=== PATIENT | female | born 1990 ===

== ENCOUNTER 2019-05-12 22:03 | Emergency (ER) | payer SELFPAY ==
--- NOTE | 2019-05-12 22:25 | Emergency Department Report ---
Blank Doc - Documentation Documentation: 28-year-old female that presents with right shoulder pain. This initial assessment/diagnostic orders/clinical plan/treatment(s) is/are subject to change based on patient's health status, clinical progression and re- assessment by fellow clinical providers in the ED. Further treatment and workup at subsequent clinical providers discretion. Patient/guardians urged not to elope from the ED as their condition may be serious if not clinically assessed and managed. Initial orders include: 1- Patient sent to [facility] for further evaluation and treatment 2- xrays
--- NOTE | 2019-05-12 23:06 | XRay Report ---
Right shoulder, 3 views INDICATION: Nontraumatic shoulder pain FINDINGS: The joint space is maintained. There is no fracture or dislocation. No spurring or arthriti c change. No bone lesion or periostitis. No significant abnormality. IMPRESSION: Negative study Signer Name: Salvador Newsome MD Signed: 05/12/2019 11:02 PM Workstation Name: [id number]
[2019-05-12] MEDS ORDERED: KETOROLAC 30 MG/1 ML INJ IM ONE (23:19)
[2019-05-12] MEDS ORDERED: GABAPENTIN 300 MG CAP PO ONE (23:19)
[2019-05-12] MEDS ORDERED: predniSONE 20 MG TAB PO ONE (23:19)
--- NOTE | 2019-05-12 23:54 | Emergency Department Report ---
ED Extremity Problem HPI - General Chief complaint: Extremity Problem,Nontraumatic Stated complaint: RT SHOULDER BACK AND RT HAND Time Seen by Provider: 05/12/19 22:23 Source: patient Mode of arrival: Ambulatory Limitations: No Limitations - History of Present Illness Initial comments: Patient is a 28-year-old [place] female with no past medical history who presents to the ED with complaint of a persistent nontraumatic right lateral neck and shoulder pain that radiates distally to the right arm and hand neck for the last 6 months, and which has worsened in the last 1 week. 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 Patient states that the pain radiates to the distal fingers with tingling and numbness sensation. Patient also states that the pain radiates to have posterior right shoulder and anterior right chest wall. Patient denies fall, traumatic injury, dizziness, nausea, vomiting, chest pain, shortness of breath, back pain, change in vision, syncope or headache. MD Complaint: extremity pain (Right shoulder pain), joint paint (right shoulder pain), other (right lateral neck pain that radiates to right arm with tingling) -: Gradual, month(s) (6) Location: right, upper extremity (shoulder), other (right lateral neck pain) History of Same: Yes -: Yes arthralgia, No fever, No associated dyspnea, No associated chest pain Radiation: distal Severity scale (0 -10): 8 Quality: burning, aching, sharp Consistency: intermittent Improves with: nothing Worsens with: weight bearing, exertion, palpation Associated Symptoms: denies other symptoms, arthralgias. denies: chest pain, shortness of breath, fever, myalgias, rash, other - Related Data Previous Rx's Medication Instructions Recorded Last Taken Type Gabapentin 300 mg PO Q12H PRN #30 cap 05/12/19 Unknown Rx Naproxen 500 mg PO Q12H PRN #30 tablet 05/12/19 Unknown Rx predniSONE [Deltasone] 40 mg PO QDAY #12 tab 05/12/19 Unknown Rx tiZANidine [Zanaflex 4mg TAB] 4 mg PO Q8H PRN #24 tablet 05/12/19 Unknown Rx Allergies Allergy/AdvReac Type Severity Reaction Status Date / Time No Known Allergies Allergy Unverified 05/12/19 22:31 ED Review of Systems ROS: Stated complaint: RT SHOULDER BACK AND RT HAND Other details as noted in HPI Constitutional: denies: chills, fever Eyes: denies: eye pain, eye discharge, vision change ENT: denies: ear pain, throat pain Respiratory: denies: cough, shortness of breath, wheezing Cardiovascular: denies: chest pain, palpitations Endocrine: no symptoms reported Gastrointestinal: denies: abdominal pain, nausea, diarrhea Genitourinary: denies: urgency, dysuria, discharge Musculoskeletal: arthralgia (RIGHT SHOULDER PAIN; Right lateral neck pain), myalgia. denies: back pain, joint swelling Skin: denies: rash, lesions Neurological: denies: headache, weakness, paresthesias Psychiatric: denies: anxiety, depression Hematological/Lymphatic: denies: easy bleeding, easy bruising ED Past Medical Hx - Past Medical History Previous Medical History?: No - Surgical History Past Surgical History?: No - Social History Smoking Status: Never Smoker Substance Use Type: None - Medications Home Medications: Home Medications Medication Instructions Recorded Confirmed Last Taken Type Gabapentin 300 mg PO Q12H PRN #30 cap 05/12/19 Unknown Rx Naproxen 500 mg PO Q12H PRN #30 tablet 05/12/19 Unknown Rx predniSONE [Deltasone] 40 mg PO QDAY #12 tab 05/12/19 Unknown Rx tiZANidine [Zanaflex 4mg TAB] 4 mg PO Q8H PRN #24 tablet 05/12/19 Unknown Rx ED Physical Exam - General Limitations: No Limitations General appearance: alert, in no apparent distress - Head Head exam: Present: atraumatic, normocephalic, normal inspection - Eye Eye exam: Present: normal appearance, PERRL, EOMI Pupils: Present: normal accommodation - ENT ENT exam: Present: normal exam, normal orophraynx, mucous membranes moist, TM's normal bilaterally, normal external ear exam - Neck Neck exam: Present: normal inspection, tenderness (Palpable right lateral sternocleidomastoid tenderness), full ROM. Absent: meningismus, lymphadenopathy, thyromegaly - Respiratory Respiratory exam: Present: normal lung sounds bilaterally. Absent: respiratory distress, wheezes, rales, rhonchi, chest wall tenderness, accessory muscle use, prolonged expiratory - Cardiovascular Cardiovascular Exam: Present: regular rate, normal rhythm, normal heart sounds. Absent: systolic murmur, diastolic murmur, rubs, gallop - GI/Abdominal GI/Abdominal exam: Present: soft, normal bowel sounds. Absent: tenderness, rebound, hyperactive bowel sounds, hypoactive bowel sounds - Extremities Exam Extremities exam: Present: normal inspection, full ROM, tenderness (Palpable right shoulder tenderness with limited range of motion due to pain), normal capillary refill. Absent: pedal edema, calf tenderness - Back Exam Back exam: Present: normal inspection, full ROM. Absent: tenderness, CVA tenderness (R), muscle spasm, paraspinal tenderness - Neurological Exam Neurological exam: Present: alert, oriented X3, CN II-XII intact, normal gait, reflexes normal - Psychiatric Psychiatric exam: Present: normal affect, normal mood - Skin Skin exam: Present: warm, dry, intact, normal color. Absent: rash ED Medical Decision Making - Radiology Data Radiology results: report reviewed, image reviewed Right shoulder x-ray shows no acute fractures or subluxations. - Medical Decision Making This is 28-year-old female who presented to the ED with nontraumatic right lateral neck pain that radiates to the right shoulder and right arm. In the ED, patient is alert and oriented x3 and is not in any distress. Right shoulder x- ray shows no acute fractures or subluxations. Patient was treated for pain in the ED and on reevaluation, patient's pain is well controlled with medications. Patient was discharged home on medications and advised to follow-up with her primary care physician in 7 to 10 days for reevaluation or return to the ED immediately if symptoms get worse. - Differential Diagnosis cervical radiculopathy; right shoulder bursitis; Muscle strain; Tendonitis Critical care attestation.: If time is entered above; I have spent that time in minutes in the direct care of this critically ill patient, excluding procedure time. ED Disposition Clinical Impression: Right cervical radiculopathy, Bursitis of right shoulder Strain of sternocleidomastoid muscle Qualifiers: Encounter type: initial encounter Qualified Code(s): S16.1XXA - Strain of muscle, fascia and tendon at neck level, initial encounter Disposition: TO HOME OR SELFCARE Is pt being admited?: No Does the pt Need Aspirin: No Condition: Stable Instructions: Muscle Strain (ED), Shoulder Bursitis (ED), Tendinitis (ED), Cervical Radiculopathy (ED) Additional Instructions: Your symptoms are due to cervical radiculopathy, meaning that the nerve on your neck is inflamed causing right arm numbness and tingling with a burning sensation as well as severe pain. Therefore take medications with food as advised, drink plenty of fluids and follow-up with your primary care physician in 7 to 10 days for reevaluation or return to the ED immediately if symptoms get worse. Prescriptions: predniSONE [Deltasone] 40 mg PO QDAY #12 tab Gabapentin 300 mg PO Q12H PRN #30 cap PRN Reason: NEUROPATHY Naproxen 500 mg PO Q12H PRN #30 tablet PRN Reason: Pain , Severe (7-10) tiZANidine [Zanaflex 4mg TAB] 4 mg PO Q8H PRN #24 tablet PRN Reason: Muscle Spasm Referrals: PRIMARY CARE,MD [Primary Care Provider] - 3-5 Days [facility] [Outside] - 3-5 Days Forms: Work/School Release Form(ED) Time of Disposition: 23:58 Print Language: [place] CITIZ[place]
[2019-05-13 00:02] VITALS: BP 104/70
== END 2019-05-13 00:15 | disposition home or self-care (01) ==
LOC: ED 22:03
DX: S16.1XXA Strain of muscle, fascia and tendon at neck level, initial encounter (principal); M54.12 Radiculopathy, cervical region; M75.51 Bursitis of right shoulder; Z79.899 Other long term (current) drug therapy; X50.9XXA Other and unspecified overexertion or strenuous movements or postures, initial encounter; Y93.89 Activity, other specified; Y92.89 Other specified places as the place of occurrence of the external cause; Y99.8 Other external cause status
CPT/HCPCS: 73030; 96372; 99283; J1885; J7512